=== PATIENT | female | born 1955 ===

== ENCOUNTER 2021-06-19 01:06 | Outpatient (REF) | payer MEDICARE, OTHER, SELFPAY ==
[2021-06-19 06:49] LABS: Hematocrit 34.4 % (37-47); Mean Corpuscular HGB Conc 29.1 g/dl (31.0-35.0); Mean Corpuscular Hemoglobin 22.5 pg (27.0-33.0); Mean Corpuscular Volume 77.5 fL (80-98); Mean Platelet Volume 10.5 fL (9.4-12.3); Platelet Count 182 X10*3/uL (160-400); Red Blood Count 4.44 X10*6/uL (4.20-5.50); Red Cell Distribution Width 16.4 % (11.0-16.0); White Blood Count 5.5 X10*3/uL (4.8-10.8)
[2021-06-19 07:23] LABS: Anion Gap 16 (12-20); Blood Urea Nitrogen 27 mg/dL (9-16); Carbon Dioxide 26 mmol/L (22-29); Chloride 100 mmol/L (96-108); Estimated Glomerular Filt Rate 35; Glucose Random 205 mg/dL (60-115); Potassium 4.2 mmol/L (3.3-5.1); Sodium 138 mmol/L (135-145)
== END 2021-06-19 01:07 | disposition home or self-care (01) ==
LOC: HO.MMNH1L 01:06
PROVIDERS: Visit Provider Family Medicine
DX: I11.0 Hypertensive heart disease with heart failure (principal); I50.9 Heart failure, unspecified; N39.0 Urinary tract infection, site not specified
CPT/HCPCS: 36415; 80048; 85027

== ENCOUNTER 2021-06-27 21:16 | Outpatient (REF) | payer SELFPAY | END 2021-06-27 21:17 | disposition home or self-care (01) | LOC: HO.MMNH1L 21:16 | PROVIDERS: Visit Provider Family Medicine | DX: Z13.89 Encounter for screening for other disorder (principal) ==